=== PATIENT | female | born 1970 | race Caucasian/White ===

== ENCOUNTER 2018-04-07 18:40 | Emergency (ER) | payer OTHER ==
[~2018-04-07] VITALS: Ht 162.6 cm; Wt 56.7 kg
[~2018-04-07 18:40] MED LIST: AMOC200S75 PO; BUPR75 PO; CARI350; GABA100 PO; HYDACE10B PO; HYDACE5; HYDACE5 PO; LORA.5 PO; METPHE20; ONDA4 PO; OXYACE5T PO; Oxycodone HCl20 M1 PO; PANT20 PO; PROM25 PO; SERT25 PO; SULTRIDS PO
== END 2018-04-07 20:29 | disposition home or self-care (01) ==
LOC: ER 18:40
DX: S00.03XA Contusion of scalp, initial encounter (principal); E11.9 Type 2 diabetes mellitus without complications; F17.210 Nicotine dependence, cigarettes, uncomplicated; Z88.5 Allergy status to narcotic agent; V89.2XXA Person injured in unspecified motor-vehicle accident, traffic, initial encounter
CPT/HCPCS: 70450; 99284-25

== ENCOUNTER 2018-10-08 19:31 | Emergency (ER) | payer OTHER ==
[~2018-10-08] VITALS: Ht 162.6 cm; Wt 59.0 kg
[2018-10-08] MEDS ORDERED: GABA300 PO (19:45)
[2018-10-08] MEDS ORDERED: [UNRECOGNIZED DRUG - OTHER] (19:46)
[2018-10-08] MEDS ORDERED: PROP10 (19:46)
[2018-10-08] MEDS ORDERED: ESTR2 (19:46)
[2018-10-08] MEDS ORDERED: ANTIDEPRESSANT (19:47)
[2018-10-08] MEDS ORDERED: [UNRECOGNIZED DRUG - OTHER] (19:47)
[2018-10-08] MEDS ORDERED: QUET25 (19:49)
== END 2018-10-08 20:41 | disposition home or self-care (01) ==
LOC: ER 19:31
DX: S83.421A Sprain of lateral collateral ligament of right knee, initial encounter (principal); X58.XXXA Exposure to other specified factors, initial encounter; Z88.5 Allergy status to narcotic agent; Z88.8 Allergy status to other drugs, medicaments and biological substances; Z88.6 Allergy status to analgesic agent; Z79.899 Other long term (current) drug therapy; Z79.891 Long term (current) use of opiate analgesic; E11.9 Type 2 diabetes mellitus without complications; F17.210 Nicotine dependence, cigarettes, uncomplicated
CPT/HCPCS: 93971; 99283-25

== ENCOUNTER → 2020-01-28 | Outpatient (CLI) | payer OTHER ==
[~2020-01-28] MED LIST changes: +ANTIDEPRESSANT; +Ativan1 MG PO; +DULO30 PO; +ESTR2 PO; +GABA300 PO; +IBUP800 PO; +PROP10 PO; +QUET25 PO; +VERA240ER PO; +[UNRECOGNIZED DRUG - OTHER]; +[UNRECOGNIZED DRUG - OTHER]
== END ==
LOC: LAB SHORT 17:23 → LAB 17:23
DX: R30.9 Painful micturition, unspecified (principal)
CPT/HCPCS: 87077; 87086; 87186

== ENCOUNTER → 2021-12-29 | Outpatient (CLI) | payer OTHER | END | disposition home or self-care (01) | LOC: LAB SHORT 10:00 → LAB 10:00 | DX: N89.8 Other specified noninflammatory disorders of vagina (principal) | CPT/HCPCS: 87070; 87106; 87205 ==

== ENCOUNTER 2022-05-24 13:48 | Emergency (ER) | payer OTHER ==
[~2022-05-24] VITALS: Ht 162.6 cm; Wt 52.2 kg
[2022-05-24] MEDS ORDERED: Hydroxyzine HCl50 MG (14:48)
[2022-05-24] MEDS ORDERED: METPHE10 PO (14:49)
[2022-05-24] MEDS ORDERED: CAPLYTA42 MG PO (14:49)
[2022-05-24 16:11] LABS: BASOPHILS ABSOLUTE AUTO 0.06 K/mm3 (0.00-0.23); BASOPHILS PERCENT AUTO 1 % (0-2); EOSINOPHILS ABSOLUTE AUTO 0.14 K/mm3 (0.00-0.68); EOSINOPHILS PERCENT AUTO 2 % (0-6); Hematocrit 39.5 % (33.0-51.0); Hemoglobin 13.3 g/dL (11.5-16.0); IMMATURE GRAN ABSOLUTE AUTO 0.02 K/mm3 (0.00-0.10); IMMATURE GRAN PERCENT AUTO 0 % (0-1); LYMPHOCYTES ABSOLUTE AUTO 3.79 K/mm3 (0.84-5.20); LYMPHOCYTES PERCENT AUTO 43 % (21-46); MONOCYTES ABSOLUTE AUTO 0.67 K/mm3 (0.16-1.47); MONOCYTES PERCENT AUTO 8 % (4-13); Mean Corpuscular HGB 30.9 pg (26.0-34.0); Mean Corpuscular HGB Conc 33.7 g/dL (31.5-36.5); Mean Corpuscular Volume 92 fL (80-100); NEUTROPHILS ABSOLUTE AUTO 4.05 K/mm3 (1.96-9.15); NEUTROPHILS PERCENT AUTO 46 % (41-73); Platelet Count 384 K/mm3 (150-400); RDW Coefficient Variation 11.9 % (11.7-14.2); RDW Standard Deviation 39.9 fL (35.1-46.3); Red Blood Cell Count 4.31 M/mm3 (3.80-5.20); White Blood Cell Count 8.73 K/mm3 (4.00-11.30)
[2022-05-24 16:23] LABS: Albumin, Blood 3.7 g/dL (3.4-5.0); Albumin/Globulin Ratio 0.9 (0.8-1.8); Bilirubin, Total 0.2 mg/dL (0.1-1.0); Bun/Creatinine Ratio 20.9 (12.0-20.0); Calcium, Blood 8.6 mg/dL (8.5-10.1); Creatinine, Blood 0.67 mg/dL (0.40-1.00); Globulin, Blood 3.9 g/dL (2.2-4.0); Potassium, Blood 3.2 mmol/L (3.5-5.5); Total Protein, Blood 7.6 g/dL (6.4-8.2)
== END 2022-05-24 16:42 | disposition home or self-care (01) ==
LOC: ER 13:48
PROVIDERS: Student in an Organized Health Care Education/Training Program
DX: M79.604 Pain in right leg (principal); Z79.899 Other long term (current) drug therapy; Z79.891 Long term (current) use of opiate analgesic; E11.9 Type 2 diabetes mellitus without complications; F17.210 Nicotine dependence, cigarettes, uncomplicated
CPT/HCPCS: 36415; 80053; 85025; 93005; 93010; 93971; 99284-25; A9270

== ENCOUNTER 2022-08-17 07:23 | Day surgery (SDC) | payer OTHER ==
[~2022-08-17] VITALS: Ht 162.6 cm; Wt 53.0 kg
[~2022-08-17 07:23] MED LIST changes: +ALBU90OI INH; +Aspir 8181 MG PO; +BACL10 PO; +BUSP10 PO; +CAPLYTA PO; +CAPLYTA42 MG PO; +DOCU100 UD; +FLUC150A PO; +Flonase 0.05% N16 GM; +Hydroxyzine HCl50 MG; +INCRUSE ELLIPTA INH; +METPHE10 PO; +PERIDEX15 ML MM; +VOLTAREN 1% GEL TOP
[2022-08-17] MEDS ORDERED: MONISTAT TOP (07:25)
[2022-08-17] MEDS ORDERED: NYSTATIN CREAM TOP (07:26)
[2022-08-17] MEDS ORDERED: OMEP20ER PO (07:26)
[2022-08-17] MEDS ORDERED: NICO21TP TOP (07:26)
[2022-08-17] MEDS ORDERED: 1/2 NS 250ml250 ML (07:27)
[2022-08-17] MEDS ORDERED: ONDA4ODT MM (07:27)
[2022-08-17] MEDS ORDERED: Prednisone10 MG PO (07:28)
[2022-08-17] MEDS ORDERED: TIOT18 INH (07:29)
[2022-08-17] MEDS ORDERED: DIAZ10 PO (07:41)
[2022-08-17 07:50] VITALS: BP 105/66
[2022-08-17 07:56] VITALS: BP 105/66
[2022-08-17 09:19] VITALS: BP 109/77
--- NOTE | 2022-08-17 09:20 | NUR ---
PATIENT ARRIVED TO RECOVERY ROOM SITTING UPRIGHT IN BED. R CALF DRESSING C/D/I SOFT/NONTENDER, NO EVIDENCE OF BLEEDING. PATIENT DENYING ANY PAIN. VSS ON ROOM AIR.
[2022-08-17 09:30] VITALS: BP 102/82
[2022-08-17 09:45] VITALS: BP 107/73
--- NOTE | 2022-08-17 10:00 | NUR ---
PATIENT SITTING UPRIGHT IN BED, TOLERATING PO INTAKE WELL. PATIENT AMBULATING TO RESTROOM WITHOUT DIFFICULTY, VSS ON ROOM AIR.
--- NOTE | 2022-08-17 10:15 | NUR ---
PATIENT DISCHARGED HOME AT THIS TIME. R CALF DRESSING C/D/I SOFT/NONTENDER, NO EVIDENCE OF BLEEDING. PIV REMOVED WITHOUT DIFFICULTY, CATHETER INTACT. VSS ON ROOM AIR. PATIENT WHEELED TO HOSPITAL ENTRANCE, SPOUSE ABLE TO PROVIDE TRANSPORTATION HOME.
== END 2022-08-17 10:15 | disposition home or self-care (01) ==
LOC: MHTC 07:23
DX: I86.8 Varicose veins of other specified sites (principal); I10 Essential (primary) hypertension; F41.9 Anxiety disorder, unspecified; F17.210 Nicotine dependence, cigarettes, uncomplicated; Z88.5 Allergy status to narcotic agent; Z79.82 Long term (current) use of aspirin; Z79.899 Other long term (current) drug therapy
CPT/HCPCS: 36005; 75820; 76937; 99152; 99153; C1769; J1644; J2250; J3010; J7030; Q9967

== ENCOUNTER 2022-12-13 09:25 | Day surgery (SDC) | payer OTHER ==
[~2022-12-13] VITALS: Ht 162.6 cm; Wt 52.3 kg
[~2022-12-13 09:25] MED LIST changes: +1/2 NS 250ml250 ML; +DIAZ10 PO; +MONISTAT TOP; +NICO21TP TOP; +NYSTATIN CREAM TOP; +OMEP20ER PO; +ONDA4ODT MM; +Prednisone10 MG PO; +TIOT18 INH
[2022-12-13 11:44] VITALS: BP 98/60
--- NOTE | 2022-12-13 11:45 | NUR ---
12/13/22 1145 Norma Rose IV AT 1130 WNL
== END 2022-12-13 11:40 | disposition home or self-care (01) ==
LOC: ORSCSDS 09:25
PROVIDERS: Specialist
PROC: 0DBM8ZX Excision of Descending Colon, Via Natural or Artificial Opening Endoscopic, Diagnostic (ICD-10-PCS; principal; 2022-12-13 10:45)
PROC: 0DB78ZX Excision of Stomach, Pylorus, Via Natural or Artificial Opening Endoscopic, Diagnostic (ICD-10-PCS; principal; 2022-12-13 10:45)
PROC: 0DB58ZX Excision of Esophagus, Via Natural or Artificial Opening Endoscopic, Diagnostic (ICD-10-PCS; principal; 2022-12-13 10:45)
PROC: 0DBK8ZX Excision of Ascending Colon, Via Natural or Artificial Opening Endoscopic, Diagnostic (ICD-10-PCS; principal; 2022-12-13 10:45)
PROC: 0DB98ZX Excision of Duodenum, Via Natural or Artificial Opening Endoscopic, Diagnostic (ICD-10-PCS; principal; 2022-12-13 10:45)
PROC: 0DBP8ZX Excision of Rectum, Via Natural or Artificial Opening Endoscopic, Diagnostic (ICD-10-PCS; principal; 2022-12-13 10:45)
DX: K21.9 Gastro-esophageal reflux disease without esophagitis (principal); K62.5 Hemorrhage of anus and rectum; K59.09 Other constipation; K29.70 Gastritis, unspecified, without bleeding; K31.7 Polyp of stomach and duodenum; D12.2 Benign neoplasm of ascending colon; D12.4 Benign neoplasm of descending colon; D12.8 Benign neoplasm of rectum; K29.80 Duodenitis without bleeding; R10.12 Left upper quadrant pain; R23.4 Changes in skin texture; J44.9 Chronic obstructive pulmonary disease, unspecified; F17.210 Nicotine dependence, cigarettes, uncomplicated; I10 Essential (primary) hypertension; Z79.899 Other long term (current) drug therapy; F41.8 Other specified anxiety disorders
CPT/HCPCS: 88305; 88312; 88342; J2250; J2704; J7120